=== PATIENT | male | born 1990 | race Two or more races ===

== ENCOUNTER → 2018-05-18 | Outpatient (CLI) | payer OTHER | END | disposition home or self-care (01) | LOC: HKI 09:33 | DX: M25.561 Pain in right knee (principal) | CPT/HCPCS: Z7500 ==

== ENCOUNTER → 2018-06-30 | Outpatient (CLI) | payer OTHER | END | disposition home or self-care (01) | LOC: HKI 13:14 | DX: M23.221 Derangement of posterior horn of medial meniscus due to old tear or injury, right knee (principal) | CPT/HCPCS: Z7500 ==